=== PATIENT | male | born 1945 | race Two or more races ===

== ENCOUNTER 2018-09-24 16:16 | Inpatient (IN) | payer MEDICARE, MEDICAID ==
[~2018-09-24] VITALS: Ht 167.6 cm; Wt 65.3 kg
[2018-09-24] MEDS ORDERED: ALBUTEROL (0.083%) 2.5MG/3ML NEB HHN STA (16:41)
[2018-09-24 17:13] LABS: BASOPHILS % 0.8 % (0.0-2.0); EOSINOPHILS % 1.2 % (0.0-5.0); HEMATOCRIT. 53.4 % (42.0-52.0); HEMOGLOBIN. 17.8 g/dL (14.0-18.0); LYMPHOCYTES % 38.2 % (20.0-50.0); MEAN CORPUSCULAR HEMOGLOBIN 29.7 pg (28.0-32.0); MEAN CORPUSCULAR VOLUME 89.2 fL (80.0-94.0); MEAN PLATELET VOLUME 8.4 fl (7.4-10.4); MONOCYTES % 11.8 % (2.0-8.0); PLATELET 177 x1000/uL (130-400); RED BLOOD CELL COUNT 5.99 mill/uL (4.7-6.1); RED CELL DISTRIBUTION WIDTH 14.8 % (11.6-14.6)
[2018-09-24 17:19] LABS: CHLORIDE 106 mEq/L (98-107)
[2018-09-24] MEDS ORDERED: ALBUTEROL (0.083%) 2.5MG/3ML NEB ONE (17:44)
[2018-09-24] MEDS ORDERED: FUROSEMIDE 40MG/4ML VIAL IVP NR (18:15)
[2018-09-24] MEDS ORDERED: CLONIDINE 0.2MG TABLET PO ONE (19:45)
[2018-09-24] MEDS ORDERED: HYDRALAZINE 20MG/ML VIAL IV ONE (20:30)
[2018-09-24] MEDS ORDERED: ACETAMINOPHEN 325MG TABLET PO PRN (21:45)
[2018-09-24] MEDS ORDERED: DEXTROSE 50% WATER 50ML SYRINGE IV PRN (21:45)
[2018-09-24] MEDS ORDERED: HYDRALAZINE 20MG/ML VIAL IV PRN (21:45)
[2018-09-24] MEDS ORDERED: ONDANSETRON HCL 4MG/2ML INJ IV PRN (21:45)
[2018-09-24] MEDS ORDERED: IPRATROPIUM/ALBUTEROL 0.5-3(2.5)MG/3ML NEB HHN PRN (21:45)
[2018-09-24] MEDS ORDERED: GUAIFENESIN-DM 200MG-20MG/10ML UDC PO PRN (21:45)
[2018-09-24 23:10] VITALS: BP_SYST 136; BP_SYST 163; BP_DIAS 90; BP_DIAS 92
[2018-09-24 23:36] VITALS: BP 163/90
[2018-09-25] MEDS: CEFTRIAXONE 1 G PREMIX 50 ML IV SCH (01:20)
[2018-09-25] MEDS: AZITHROMYCIN 500 MG TABLET PO SCH ×2 (01:30→20:39)
[2018-09-25 01:58] LABS: CLARITY URINE CLEAR (CLEAR); COLOR URINE YELLOW (YELLOW); KETONES URINE NEGATIVE (NEGATIVE); LEUKOCYTE ESTERASE URINE NEGATIVE (NEGATIVE); NITRITE URINE NEGATIVE (NEGATIVE); OCCULT BLOOD URINE NEGATIVE (NEGATIVE); PROTEIN URINE 1+ (NEGATIVE); SPECIFIC GRAVITY URINE 1.008 (1.005-1.030)
[2018-09-25 02:12] LABS: *BARBITURATES SCREEN URINE NEGATIVE (NEGATIVE); *BENZODIAZEPINES SCREEN URINE NEGATIVE (NEGATIVE); *COCAINE SCREEN URINE NEGATIVE (NEGATIVE); METHADONE URINE SCREEN NEGATIVE (NEGATIVE)
[2018-09-25 02:13] LABS: *AMPHETAMINES SCREEN URINE NEGATIVE (NEGATIVE); CANNABINOID URINE SCREEN NEGATIVE (NEGATIVE); OPIATES URINE SCREEN NEGATIVE (NEGATIVE); PHENCYCLIDINE URINE SCREEN NEGATIVE (NEGATIVE)
[2018-09-25 04:00] VITALS: BP 152/94
[2018-09-25] MEDS: BLOOD SUGAR DIAGNOSTIC STRIP TEST SCH ×4 (06:19→20:39)
[2018-09-25] MEDS: INSULIN LISPRO 100 UNITS/ML SUBCUT SCH ×4 (06:19→20:39)
[2018-09-25 07:42] LABS: BASOPHILS % 1.3 % (0.0-2.0); EOSINOPHILS % 1.5 % (0.0-5.0); HEMOGLOBIN. 17.5 g/dL (14.0-18.0); LYMPHOCYTES % 46.7 % (20.0-50.0); MEAN CORPUSCULAR HEMOGLOBIN 29.4 pg (28.0-32.0); MEAN CORPUSCULAR VOLUME 89.1 fL (80.0-94.0); MEAN PLATELET VOLUME 8.6 fl (7.4-10.4); NEUTROPHILS % 37.5 % (40.0-76.0); PLATELET 161 x1000/uL (130-400); RED BLOOD CELL COUNT 5.95 mill/uL (4.7-6.1); RED CELL DISTRIBUTION WIDTH 15.3 % (11.6-14.6)
[2018-09-25 07:56] LABS: CHLORIDE 106 mEq/L (98-107)
[2018-09-25 08:00] VITALS: BP 137/84
[2018-09-25] MEDS ORDERED: ENOXAPARIN 40MG/0.4ML SYR SUBCUT SCH (09:00)
[2018-09-25] MEDS ORDERED: AMLODIPINE 5MG TABLET PO SCH (09:00)
[2018-09-25 12:00] VITALS: BP 138/86
[2018-09-25] MEDS ORDERED: LOSARTAN POTASSIUM 50 MG TABLET PO SCH (13:00)
[2018-09-25] MEDS: SPIRONOLACTONE 25MG TABLET PO SCH (13:40)
[2018-09-25] MEDS: FUROSEMIDE 20MG/2ML VIAL IVP SCH (13:41)
[2018-09-25 16:00] VITALS: BP 132/71
[2018-09-25] MEDS: APIXABAN 5 MG TABLET PO SCH (16:47)
[2018-09-25 20:00] VITALS: BP 150/80
[2018-09-25] MEDS ORDERED: CARVEDILOL 6.25 MG TABLET PO SCH (21:00)
[2018-09-26] VITALS: BP 143/75
[2018-09-26] MEDS: CEFTRIAXONE 1 G PREMIX 50 ML IV SCH (01:39)
[2018-09-26 04:00] VITALS: BP 140/70
[2018-09-26] MEDS: BLOOD SUGAR DIAGNOSTIC STRIP TEST SCH ×4 (06:30→20:30)
[2018-09-26] MEDS: INSULIN LISPRO 100 UNITS/ML SUBCUT SCH ×4 (06:30→20:30)
[2018-09-26 07:27] LABS: BASOPHILS % 0.9 % (0.0-2.0); EOSINOPHILS % 1.5 % (0.0-5.0); HEMATOCRIT. 49.8 % (42.0-52.0); HEMOGLOBIN. 16.6 g/dL (14.0-18.0); LYMPHOCYTES % 48.5 % (20.0-50.0); MEAN CORPUSCULAR HEMOGLOBIN 29.3 pg (28.0-32.0); MEAN PLATELET VOLUME 8.5 fl (7.4-10.4); MONOCYTES % 13.6 % (2.0-8.0); NEUTROPHILS % 35.5 % (40.0-76.0); PLATELET 177 x1000/uL (130-400); RED BLOOD CELL COUNT 5.65 mill/uL (4.7-6.1); RED CELL DISTRIBUTION WIDTH 14.8 % (11.6-14.6)
[2018-09-26 07:32] LABS: CHLORIDE 107 mEq/L (98-107)
[2018-09-26 08:00] VITALS: BP 148/98
[2018-09-26] MEDS: LOSARTAN POTASSIUM 50 MG TABLET PO SCH ×2 (08:25→20:28)
[2018-09-26] MEDS: FUROSEMIDE 20MG/2ML VIAL IVP SCH (08:25)
[2018-09-26] MEDS: APIXABAN 5 MG TABLET PO SCH ×2 (08:25→16:32)
[2018-09-26] MEDS: SPIRONOLACTONE 25MG TABLET PO SCH (09:06)
[2018-09-26 12:00] VITALS: BP 135/63
[2018-09-26] MEDS: HYDRALAZINE HCL 25MG TABLET PO SCH ×2 (12:50→20:28)
[2018-09-26] MEDS: POLYETHYLENE GLYCOL 3350 (17GM) 1 DOSE PACK PO SCH (14:41)
[2018-09-26] MEDS: ASPIRIN 81MG TABLET PO SCH (14:41)
[2018-09-26 16:00] VITALS: BP 140/74
[2018-09-26 20:00] VITALS: BP 163/83
[2018-09-26] MEDS: ATORVASTATIN CALCIUM 20MG TABLET PO SCH (20:28)
[2018-09-27] VITALS (7 sets, daily range): BP systolic 128–161; BP diastolic 73–89
[2018-09-27] MEDS: BLOOD SUGAR DIAGNOSTIC STRIP TEST SCH ×5 (06:01→20:44)
[2018-09-27] MEDS: INSULIN LISPRO 100 UNITS/ML SUBCUT SCH ×5 (06:01→20:44)
[2018-09-27 06:46] LABS: BASOPHILS % 0.4 % (0.0-2.0); EOSINOPHILS % 3.1 % (0.0-5.0); HEMATOCRIT. 50.8 % (42.0-52.0); HEMOGLOBIN. 17.2 g/dL (14.0-18.0); LYMPHOCYTES % 42.7 % (20.0-50.0); MEAN CORPUSCULAR HEMOGLOBIN 29.7 pg (28.0-32.0); MEAN CORPUSCULAR VOLUME 87.8 fL (80.0-94.0); MEAN PLATELET VOLUME 8.6 fl (7.4-10.4); MONOCYTES % 12.5 % (2.0-8.0); NEUTROPHILS % 41.3 % (40.0-76.0); PLATELET 201 x1000/uL (130-400); RED BLOOD CELL COUNT 5.78 mill/uL (4.7-6.1); RED CELL DISTRIBUTION WIDTH 14.5 % (11.6-14.6)
[2018-09-27 06:52] LABS: CHLORIDE 107 mEq/L (98-107)
[2018-09-27] MEDS: HYDRALAZINE HCL 25MG TABLET PO SCH ×2 (09:00→20:52)
[2018-09-27] MEDS: LOSARTAN POTASSIUM 50 MG TABLET PO SCH ×2 (10:04→20:51)
[2018-09-27] MEDS: FUROSEMIDE 20MG/2ML VIAL IVP SCH (10:04)
[2018-09-27] MEDS: APIXABAN 5 MG TABLET PO SCH ×2 (10:04→16:29)
[2018-09-27] MEDS: SPIRONOLACTONE 25MG TABLET PO SCH (10:04)
[2018-09-27] MEDS: POLYETHYLENE GLYCOL 3350 (17GM) 1 DOSE PACK PO SCH (10:05)
[2018-09-27] MEDS: ASPIRIN 81MG TABLET PO SCH (10:07)
[2018-09-27] MEDS ORDERED: IOHEXOL-350 100 ML BOTTLE ONE (13:47)
[2018-09-27] MEDS: ATORVASTATIN CALCIUM 20MG TABLET PO SCH (20:51)
[2018-09-28] VITALS: BP 131/74
[2018-09-28 04:00] VITALS: BP 135/71
[2018-09-28 07:22] LABS: HEMATOCRIT. 56.7 % (42.0-52.0); HEMOGLOBIN. 19.4 g/dL (14.0-18.0); MEAN CORPUSCULAR HEMOGLOBIN 29.9 pg (28.0-32.0); MEAN CORPUSCULAR VOLUME 87.6 fL (80.0-94.0); MEAN PLATELET VOLUME 8.8 fl (7.4-10.4); PLATELET 203 x1000/uL (130-400); RED BLOOD CELL COUNT 6.48 mill/uL (4.7-6.1); RED CELL DISTRIBUTION WIDTH 14.6 % (11.6-14.6)
[2018-09-28 08:00] VITALS: BP 150/99
[2018-09-28 08:06] LABS: CHLORIDE 106 mEq/L (98-107)
[2018-09-28] MEDS: POLYETHYLENE GLYCOL 3350 (17GM) 1 DOSE PACK PO SCH (08:51)
[2018-09-28] MEDS: FUROSEMIDE 20MG/2ML VIAL IVP SCH (08:51)
[2018-09-28] MEDS: APIXABAN 5 MG TABLET PO SCH ×2 (08:52→17:46)
[2018-09-28] MEDS: HYDRALAZINE HCL 25MG TABLET PO SCH ×2 (08:52→21:42)
[2018-09-28] MEDS: LOSARTAN POTASSIUM 50 MG TABLET PO SCH ×2 (08:52→21:42)
[2018-09-28] MEDS: ASPIRIN 81MG TABLET PO SCH (08:52)
[2018-09-28] MEDS: SPIRONOLACTONE 25MG TABLET PO SCH (08:53)
[2018-09-28 12:09] VITALS: BP 119/67
[2018-09-28] MEDS: INSULIN LISPRO 100 UNITS/ML SUBCUT SCH ×3 (12:40→21:00)
[2018-09-28] MEDS: BLOOD SUGAR DIAGNOSTIC STRIP TEST SCH ×3 (12:51→21:42)
[2018-09-28 16:00] VITALS: BP 150/99
[2018-09-28 18:40] LABS: PLATELET ESTIMATE NORMAL
[2018-09-28 20:00] VITALS: BP 147/91
[2018-09-28] MEDS: ATORVASTATIN CALCIUM 20MG TABLET PO SCH (21:42)
[2018-09-29 04:00] VITALS: BP 139/91
[2018-09-29 06:32] LABS: HEMATOCRIT. 54.7 % (42.0-52.0); MEAN CORPUSCULAR HEMOGLOBIN 29.1 pg (28.0-32.0); MEAN CORPUSCULAR VOLUME 88.3 fL (80.0-94.0); MEAN PLATELET VOLUME 8.5 fl (7.4-10.4); PLATELET 207 x1000/uL (130-400); RED CELL DISTRIBUTION WIDTH 14.8 % (11.6-14.6)
[2018-09-29] MEDS: BLOOD SUGAR DIAGNOSTIC STRIP TEST SCH ×2 (06:32→12:21)
[2018-09-29] MEDS: INSULIN LISPRO 100 UNITS/ML SUBCUT SCH ×2 (06:32→12:51)
[2018-09-29 07:17] LABS: CHLORIDE 106 mEq/L (98-107)
[2018-09-29 08:00] VITALS: BP 140/92
[2018-09-29] MEDS ORDERED: FUROSEMIDE 40MG TABLET PO SCH (09:00)
[2018-09-29] MEDS: POLYETHYLENE GLYCOL 3350 (17GM) 1 DOSE PACK PO SCH (09:00)
[2018-09-29] MEDS: HYDRALAZINE HCL 25MG TABLET PO SCH (09:11)
[2018-09-29] MEDS: APIXABAN 5 MG TABLET PO SCH (09:11)
[2018-09-29] MEDS: LOSARTAN POTASSIUM 50 MG TABLET PO SCH (09:11)
[2018-09-29] MEDS: SPIRONOLACTONE 25MG TABLET PO SCH (09:11)
[2018-09-29 12:00] VITALS: BP 124/81
[2018-09-29 13:08] LABS: PLATELET ESTIMATE NORMAL
[2018-09-29] MEDS ORDERED: APIX5TAB PO (15:32)
[2018-09-29] MEDS ORDERED: HYDR-4135 PO (15:32)
[2018-09-29] MEDS ORDERED: ATOR20TA PO (15:32)
[2018-09-29] MEDS ORDERED: LOSA50TA3 PO (15:32)
[2018-09-29] MEDS ORDERED: SPIR25TA PO (15:32)
[2018-09-29] MEDS ORDERED: FURO40TA5 PO (15:32)
[2018-09-29 15:34] VITALS: BP 124/81
[2018-09-29] MEDS ORDERED: HYDRALAZINE HCL 50MG TABLET PO SCH (21:00)
== END 2018-09-29 16:35 | disposition home or self-care (01) | DRG 291 ==
LOC: ER 16:16 → 8WST 20:23 → ENRESERV 21:53
PROVIDERS: ADMIT Internal Medicine; ATTEND Internal Medicine
DX: I11.0 Hypertensive heart disease with heart failure (principal); J96.00 Acute respiratory failure, unspecified whether with hypoxia or hypercapnia; J44.1 Chronic obstructive pulmonary disease with (acute) exacerbation; R64 Cachexia; I48.3 Typical atrial flutter; J98.11 Atelectasis; I24.0 Acute coronary thrombosis not resulting in myocardial infarction; I50.23 Acute on chronic systolic (congestive) heart failure; D75.1 Secondary polycythemia; E11.9 Type 2 diabetes mellitus without complications; E78.5 Hyperlipidemia, unspecified; F17.210 Nicotine dependence, cigarettes, uncomplicated; I48.91 Unspecified atrial fibrillation; I07.1 Rheumatic tricuspid insufficiency; I27.21 Secondary pulmonary arterial hypertension; I49.5 Sick sinus syndrome; Z79.01 Long term (current) use of anticoagulants; Z68.23 Body mass index [BMI] 23.0-23.9, adult; Z86.73 Personal history of transient ischemic attack (TIA), and cerebral infarction without residual deficits; Z91.19 Patient's noncompliance with other medical treatment and regimen; Z71.6 Tobacco abuse counseling
CPT/HCPCS: 36415; 71045; 75572; 80048; 80061; 80305; 82962; 83735; 83880; 84443; 84484; 93005; 93306; 94640; 96372; 96374; 99285; J0360; J0696; J1650; J1815; J1940; J7050; J7611; Q9967